=== PATIENT | male | born 1990 | race Caucasian/White ===

== ENCOUNTER 2018-03-30 12:53 | Emergency (ER) | payer MEDICAID, OTHER ==
[~2018-03-30] VITALS: Ht 180.3 cm; Wt 61.2 kg
[2018-03-30 12:53] VITALS: BP 120/76
== END 2018-03-30 13:54 | disposition home or self-care (01) ==
LOC: ER 13:03
DX: J06.9 Acute upper respiratory infection, unspecified (principal)
CPT/HCPCS: 99282; A4606; Z7610

== ENCOUNTER 2019-01-16 12:33 | Inpatient (IN) | payer MEDICAID ==
[~2019-01-16] VITALS: Ht 180.3 cm; Wt 67.6 kg
[2019-01-16 14:48] LABS: BASOPHILS % (AUTO) 0.8 % (0.0-2.0); EOSINOPHILS % (AUTO) 1.1 % (0.0-6.0); HEMATOCRIT 46 % (39-51); HEMOGLOBIN 16.3 g/dL (13.5-17.5); LYMPHOCYTES # (AUTO) 1.2 /CMM (0.8-4.8); LYMPHOCYTES % (AUTO) 23.8 % (20.0-44.0); MEAN CORPUSCULAR HGB CONC 35 g/dl (31.0-36.0); MEAN CORPUSCULAR VOLUME 95 fL (80-96); MONOCYTES # (AUTO) 0.4 /CMM (0.1-1.30); MONOCYTES % (AUTO) 7.9 % (2.0-12.0); NEUTROPHILS # (AUTO) 3.4 /CMM (1.8-8.9); NEUTROPHILS % (AUTO) 66.4 % (43.0-81.0); PLATELET COUNT (AUTO) 291 /CMM (150-450); RED BLOOD CELL COUNT(AUTO) 4.86 MIL/uL (4.5-6.0); WHITE BLOOD COUNT (AUTO) 5.1 K/uL (4.3-11.0)
[2019-01-16] MEDS ORDERED: IV NS 0.9% 1,000 ML BAG IV ONE (15:00)
[2019-01-16 15:02] LABS: CALCIUM, SERUM 8.8 mg/dL (8.5-10.1); CREATININE 1.1 mg/dL (0.6-1.3); POTASSIUM 3.8 mmol/L (3.5-5.1)
[2019-01-16 15:06] LABS: ALBUMIN 4.5 g/dL (3.4-5.0); BILIRUBIN,DIRECT 0.1 mg/dL (0.0-0.2); BILIRUBIN,TOTAL 0.8 mg/dL (0.2-1.0); TOTAL PROTEIN, SERUM 7.3 g/dL (6.4-8.2)
[2019-01-16] MEDS ORDERED: IOHEXOL-300 100 ML VIAL IV ONE (15:13)
--- NOTE | 2019-01-16 15:19 | NUR ---
patient wheeled via gurney going for CT scan
--- NOTE | 2019-01-16 16:49 | NUR ---
316-[facility]
--- NOTE | 2019-01-16 17:07 | NUR ---
report given to ETHAN QUIROZ for nadiya.
[2019-01-16] MEDS ORDERED: ONDANSETRON HCL/PF 4 MG/2 ML VIAL IV PRN (19:30)
[2019-01-16] MEDS ORDERED: HYDROCODONE/APAP 5/325MG 1 EACH TABLET PO PRN (19:30)
[2019-01-16] MEDS ORDERED: ACETAMINOPHEN 650 MG/20.3 ML UDC NG PRN (19:30)
[2019-01-16] MEDS ORDERED: Potassium Chloride 10 MEQ in IV D5/ 0.9% NACL 1,000 ML IV PRN (19:30)
[2019-01-16] MEDS ORDERED: HYDROMORPHONE INJ 0.5 MG/0.5 ML SYRINGE IV PRN (19:30)
--- NOTE | 2019-01-16 19:33 | NUR ---
PT TAKEN UP TO FLOOR BY EMT
[2019-01-16 19:40] VITALS: BP 127/79
--- NOTE | 2019-01-16 19:40 | NUR ---
ADMISSION 28 y/o male admitted to [facility] unit for Acute appendicitis. Patient is A/O x4. Skin intact. Orientation to room, unit, staff. Instruction to use call light for assistance, verbalized understanding.
[2019-01-16 20:00] VITALS: BP 127/79
[2019-01-16] MEDS ORDERED: IV D5/ 0.9% NACL 1,000 ML IV PRN (21:00)
[2019-01-16] MEDS ORDERED: PIPERACILLIN /TAZOBACTAM 3.375 G VIAL IV ONE (22:22)
[2019-01-16] MEDS: PIPERACILLIN /TAZOBACTAM 3.375 G in IV D5W 50 ML IV SCH (23:34)
[2019-01-17] MEDS ORDERED: INFLUENZA VACCINE 2019-20 0.5 ML DISP.SYRIN IM ONE
[2019-01-17] MEDS ORDERED: PIPERACILLIN /TAZOBACTAM 3.375 G VIAL IV ONE (05:01)
[2019-01-17] MEDS: PIPERACILLIN /TAZOBACTAM 3.375 G in IV D5W 50 ML IV SCH (05:50)
--- NOTE | 2019-01-17 06:23 | NUR ---
END OF SHIFT REPORT Patient in bed, stable oxygen saturation on RA. NPO, IVF infusing. IV abx as scheduled. Patient reports no abdominal pain. Urine specimen collected and send to lab. Dr. Gutierrez/ surgery consult to follow, patient aware possible surgery today. Hourly rounds, ambulates independently.
[2019-01-17] MEDS ORDERED: HYDROMORPHONE 1 MG/1 ML DISP.SYRIN IV PRN (06:33)
[2019-01-17 07:03] LABS: BASOPHILS % (AUTO) 0.6 % (0.0-2.0); HEMATOCRIT 42 % (39-51); HEMOGLOBIN 14.7 g/dL (13.5-17.5); LYMPHOCYTES # (AUTO) 1.2 /CMM (0.8-4.8); MEAN CORPUSCULAR HGB CONC 35 g/dl (31.0-36.0); MEAN CORPUSCULAR VOLUME 94 fL (80-96); MONOCYTES # (AUTO) 0.5 /CMM (0.1-1.30); MONOCYTES % (AUTO) 8.2 % (2.0-12.0); NEUTROPHILS # (AUTO) 3.8 /CMM (1.8-8.9); NEUTROPHILS % (AUTO) 69.2 % (43.0-81.0); PLATELET COUNT (AUTO) 254 /CMM (150-450); RED BLOOD CELL COUNT(AUTO) 4.49 MIL/uL (4.5-6.0); WHITE BLOOD COUNT (AUTO) 5.6 K/uL (4.3-11.0)
--- NOTE | 2019-01-17 07:05 | NUR ---
M/S RN OPENING NOTES RECEIVED PATIENT ON BED A/O X 4 AND ABLE TO MAKE NEEDS KNOWN. RESPIRATION EVEN AND NON LABORED WITH NO ACUTE RESPIRATORY DISTRESS. ABDOMEN SOFT AND NON DISTENDED WITH ACTIVE BOWEL SOUNDS, NO BM SINCE ADMISSION, CONTINENT BOWEL AND BLADDER. DENIES PAIN AND DISCOMFORT. IV SITE AT LEFT AC GAUGE 18 RUNNING D5NS AT 100 ML/HR. SCHEDULED LAP APPENDECTOMY AT 8AM, WAS NPO SINCE 11 AM YESTERDAY PATIENT STATED, NO ORDERS FOR SURGERY AT THIS TIME HAVEN'T TALKED TO SURGEON (DR. GOODMAN) YET. AWAITING FOR VISIT. PRE OP FORM COMPLETED. WILL CONTINUE TO EVALUATE CARE
--- NOTE | 2019-01-17 07:25 | NUR ---
M/S RN NOTES PT SEEN BY DR. FAUSTIN. NEW ORDER OF ATIVAN DUE TO INCREASED ANXIETY OF PATIENT STATED.
[2019-01-17] MEDS ORDERED: ANESTHESIA TRAY IN PYXIS 1 EA TRAY MC ONE (07:28)
[2019-01-17] MEDS ORDERED: BUPIVACAINE MPF W/EPI 0.25% 30 ML VIAL ONE (07:28)
[2019-01-17 07:35] LABS: CALCIUM, SERUM 8.6 mg/dL (8.5-10.1); CREATININE 1.2 mg/dL (0.6-1.3); POTASSIUM 3.4 mmol/L (3.5-5.1)
--- NOTE | 2019-01-17 07:40 | NUR ---
M/S RN NOTES PT LEFT ON FLOOR TO SURGERY WITH 2 OR NURSES VIA [place], SIGNIFICANT OTHER PRESENT. PT TO BE SEEN BY DR. GOODMAN AT OR FOR DISCUSSION AND PLAN OF CARE. ATIVAN NOT GIVEN ON FLOOR. ROOM CLEAN WITH NO VALUABLES SEEN.
[2019-01-17] MEDS ORDERED: FENTANYL PF 100MCG/2ML AMPUL ONE (07:54)
[2019-01-17] MEDS ORDERED: ROCURONIUM BROMIDE 50 MG/5 ML ONE (07:55)
[2019-01-17] MEDS ORDERED: MIDAZOLAM HCL 2 MG/2ML VIAL ONE (07:55)
[2019-01-17 08:00] VITALS: BP 110/52
[2019-01-17] MEDS ORDERED: LORAZEPAM INJ 2 MG/ML VIAL IV PRN (08:00)
[2019-01-17 09:11] LABS: APPEARANCE,URINE Clear (CLEAR); BILIRUBIN,URINE Negative (NEGATIVE); BLOOD, URINE Negative Ery/uL (NEGATIVE); COLOR,URINE Yellow (YELLOW); KETONES,URINE 15 (NEGATIVE); LEUKOCYTE ESTERASE ,URINE Negative (NEGATIVE); NITRITE, URINE Negative (NEGATIVE); PROTEIN,URINE Negative (NEGATIVE); UGLUCOSE Negative (NEGATIVE); UROBILINOGEN,URINE 0.2 EU/dL (0.2)
[2019-01-17] MEDS ORDERED: HYDR-4384 PO (09:15)
--- NOTE | 2019-01-17 09:22 | NUR ---
M/S RN NOTES PATIENT CAME BACK FROM OR ACCOMPANIED BY 2 OR NURSES AND HIS SIGNIFICANT OTHERS VIA [facility]. BP 105/74, NC 78, RR 20, T 98.0, 99% RA, 0/10. A/O X 4. APPEARS COMFORTABLE AT THIS TIME
[2019-01-17] MEDS ORDERED: MORPHINE SULFATE INJ 2 MG/ML DISP.SYRIN IV PRN (09:30)
--- NOTE | 2019-01-17 09:50 | NUR ---
M/S RN NOTES C/O OF RIGHT SHOULDER PAIN WITH SOB. GIVEN O2 AT 2LPM VIA NASAL CANNULA. EDUCATED DEEP BREATHING EXERCISES, AMBULATION TOLERATED AND USING INCENTIVE SPIROMETER. APPERAS COMFORTABLE AFTER 5 MINUTES. LEFT PT ASLEEP
[2019-01-17] MEDS ORDERED: MORPHINE SULFATE INJ 2 MG/ML DISP.SYRIN IM PRN (10:00)
[2019-01-17] MEDS ORDERED: HYDROCODONE/APAP 5/325MG 1 EACH TABLET PO PRN (10:00)
[2019-01-17] MEDS ORDERED: ONDANSETRON HCL/PF 4 MG/2 ML VIAL IV PRN (10:00)
[2019-01-17] MEDS ORDERED: POTASSIUM CHLORIDE 20 MEQ TAB.PRT.SR PO SCH (11:00)
--- NOTE | 2019-01-17 11:22 | NUR ---
M/S RN NOTES [address] FAUSTIN AND DR. GOODMAN OF [place] 5/325 MG TAB NEEDED FOR PAIN MANAGEMENT. MOI RODRIGUEZ NOTIFIED AND ADVISED TO GIVE DR. GOODMAN'S PRESCRIPTION, SHREDDED DR. FAUSTIN'S RX.
[2019-01-17] MEDS ORDERED: PIPERACILLIN /TAZOBACTAM 3.375 G in IV D5W 100 ML IV SCH (12:00)
--- NOTE | 2019-01-17 12:30 | NUR ---
M/S RN NOTES PT UNABLE TO URINATE. AMBULATION, RUNNING OF WATER WILL BE ATTEMPTED.
--- NOTE | 2019-01-17 12:45 | NUR ---
M/S RN NOTES PATIENT WITH ABD PAIN AND DISCOMFORT. ABLE TO URINATE. BLADDER SCAN SHOWS 0 ML. WILL ATTEMPT TO URINATE MORE. PRESENCE OF URGENCY. SIGNIFICANT OTHERS ASKING FOR IN AND OUT CATHETER, DISCUSSED THE PROCEDURE AND RESULT OF BLADDER SCAN. PT STATED CONTINUE TO ATTEMPT. AMBULATION TOLERATED
--- NOTE | 2019-01-17 13:09 | NUR ---
M/S RN NOTES PT ABLE TO URINATE. LESS ABDOMINAL DISCOMFORT. AMARIS TO TOLERATE LUNCH MEAL. INCENTIVE SPIROMETER TO USE MORE OFTEN OR PURSED LIP BREATHING EXERCISE. VERBALIZED UNDERSTANDING.
--- NOTE | 2019-01-17 15:30 | NUR ---
M/S RN NOTES EXIT CARE PROVIDED WITH PATIENT. INSTRUCTED DISCHARGE INSTRUCTIONS PER MD. EDUCATED S/SX ON INFECTION AND WOUND SITE CARE. PATIENT DECIDED TO NOT GET FLU VACCINE HERE IN THE HOSPITAL, STATED WILL GET IT ONCE RECOVERED FROM SURGERY SOMEWHERE ELSE. RISK AND BENEFITS DISCUSSED, VERBALLY UNDERSTOOD.
[2019-01-17 16:11] VITALS: BP 109/58
--- NOTE | 2019-01-17 16:54 | NUR ---
M/S SENIOR NET C DEVELOPER NOTES PATIENT DISCHARGE IN STABLE CONDITION WHEELED BY TAYA SHIELDS ACCOMPANIED BY SIGNIFICANT OTHERS LEIDY. PT A/O X 4, NO AMS. RESPIRATION EVEN AND NON LABORED WITH NO ACUTE RESPIRATORY DISTRESS. LUNGS CLEARED BILATERALLY, RE-EDUCATED PURSED LIP BREATHING. ABDOMEN SOFT AND NON DISTENDED, ABLE TO URINATE WITH NO DIFFICULTIES. DENIES PAIN AND DISCOMFORT. IV SITE REMOVED, TOLERATED WELL. EXIT CARE UNDERSTOOD. ALL CONCERNS ADDRESSED. LEFT IN SAFE ENVIRONMENT. THANKFUL WITH SERVICES PROVIDED.
== END 2019-01-17 17:00 | disposition home or self-care (01) | DRG 234 ==
LOC: ER 12:34 → MED 18:20
PROVIDERS: ADMIT Internal Medicine; ATTEND Internal Medicine
PROC: 0WJG4ZZ Inspection of Peritoneal Cavity, Percutaneous Endoscopic Approach (ICD-10-PCS; principal; 2019-01-17)
PROC: 0DTJ4ZZ Resection of Appendix, Percutaneous Endoscopic Approach (ICD-10-PCS; 2019-01-17)
DX: R10.31 Right lower quadrant pain (principal); K52.9 Noninfective gastroenteritis and colitis, unspecified
CPT/HCPCS: 36415; 80048-TC; 80076-TC; 81000-TC; 83690-TC; 83735-TC; 85025-TC; 85730-TC; 87081-TC; 88304-TC; G0378; J1100; J1885; J2250; J2543; J2704; J2710; J3010; J3480; J3490; J7030; J7042; J7060; Q9967